=== PATIENT | female | born 1970 | race African-American/Black ===

== ENCOUNTER 2022-07-21 15:54 | Emergency (ER) | payer BC ==
[~2022-07-21] VITALS: Ht 165.1 cm; Wt 68.0 kg
--- NOTE | 2022-07-21 16:22 | NUR ---
Pt arrived in bed safely. Safety measures in place. Will continue to monitor.
--- NOTE | 2022-07-21 17:20 | NUR ---
Pt seen by . Safety measures in place. Will continue to monitor.
[2022-07-21 18:42] LABS: *BILIRUBIN,URIN NEGATIVE (NEGATIVE); *BLOOD, URINE 1+ (NEGATIVE); *CLARITY,URINE CLEAR (CLEAR); *COLOR,URINE AMBER (YELLOW); *KETONES,URINE TRACE (NEGATIVE); LEUKOCYTE ESTERASE ,URINE NEGATIVE (NEGATIVE); NITRITE, URINE POSITIVE (NEGATIVE); UGLUCOSE TRACE (NEGATIVE)
[2022-07-21] MEDS ORDERED: IV NORMAL SALINE 1000 ML BAG IV ONE (18:48)
[2022-07-21 18:51] LABS: RBC,URINE 0-3 /HPF (0-3)
[2022-07-21 18:51] LABS: HEMATOCRIT 42.8 % (31.2-41.9); MEAN CORPUSCULAR HEMOGLOBIN 30.1 uug (24.7-32.8); MEAN CORPUSCULAR VOLUME 91.8 fL (75.5-95.3); PLATELET COUNT (AUTO) 233 K/uL (179-408)
[2022-07-21 18:52] LABS: BACTERIA,URINE MANY /HPF (NONE SEEN); SQUAMOUS EPITHELIAL CELL,UR MODERATE /HPF (NONE SEEN)
[2022-07-21] MEDS ORDERED: CEFTRIAXONE 1 G in IV DEXTROSE 5% 50 ML IV ONE (19:00)
[2022-07-21 19:07] LABS: CREATININE 0.8 mg/dL (0.6-1.3)
[2022-07-21 19:13] LABS: BILIRUBIN,TOTAL 0.4 mg/dL (0.2-1.0); TOTAL PROTEIN, SERUM 7.6 g/dL (6.4-8.2)
[2022-07-21] MEDS ORDERED: POTASSIUM BICARBONATE/CIT AC 25 MEQ TABLET.EFF PO ONE (19:15)
[2022-07-21] MEDS ORDERED: CEFTRIAXONE /D5W 50ML IVPB **ER PYXIS IV ONE (19:17)
[2022-07-21] MEDS ORDERED: CEPH500C2 PO (19:26)
[2022-07-21] MEDS ORDERED: POTASSIUM BICARBONATE/CIT AC 25 MEQ TABLET.EFF ONE (19:39)
[2022-07-21] MEDS ORDERED: FLUC150T PO (19:43)
--- NOTE | 2022-07-21 19:59 | NUR ---
Patient discharged to home in stable condition. Written and verbal after care instructions given. Patient verbalizes understanding of instructions. Stressed follow up or return to ER for worsening s/s. Patient walked out with steady gait.
[2022-07-21 20:21] VITALS: BP 139/85
== END 2022-07-21 20:00 | disposition home or self-care (01) ==
LOC: ER 15:54
DX: R30.0 Dysuria (principal); N39.0 Urinary tract infection, site not specified; N89.8 Other specified noninflammatory disorders of vagina; Z88.2 Allergy status to sulfonamides; Z88.8 Allergy status to other drugs, medicaments and biological substances
CPT/HCPCS: 99284; 96365; 96361; 80053; 81001; 85025; 87210; 36415; 87040; J0696; J7040; A4663